=== PATIENT | female | born 1995 | race African-American/Black ===

== ENCOUNTER 2018-07-17 11:02 | Emergency (ER) | payer MEDICAID ==
[~2018-07-17] VITALS: Ht 157.5 cm; Wt 103.0 kg
[~2018-07-17 11:02] MED LIST: ALBU18HF2 IH; BECL8.7A6 INH; HYDR-519 PO
[2018-07-17] MEDS ORDERED: HYDROCODONE/ACETAMINOPHEN 5/325MG TABLET PO STA (11:37)
[2018-07-17 12:11] LABS: BASOPHILS % 0.7 % (0.0-2.0); EOSINOPHILS % 3.1 % (0.0-5.0); HEMATOCRIT. 38.1 % (36.0-48.0); HEMOGLOBIN. 12.5 g/dL (12.0-16.0); LYMPHOCYTES % 27.9 % (20.0-50.0); MEAN CORPUSCULAR HEMOGLOBIN 28.1 pg (28.0-32.0); MEAN CORPUSCULAR VOLUME 85.4 fL (81.0-99.0); MEAN PLATELET VOLUME 6.8 fl (7.4-10.4); MONOCYTES % 6.6 % (2.0-8.0); NEUTROPHILS % 61.7 % (40.0-76.0); PLATELET 621 x1000/uL (130-400); RED BLOOD CELL COUNT 4.46 mill/uL (4.2-5.4); RED CELL DISTRIBUTION WIDTH 14.2 % (11.6-14.6)
[2018-07-17 12:21] LABS: CHLORIDE 105 mEq/L (98-107)
[2018-07-17] MEDS ORDERED: ACETAMINOPHEN 500MG TABLET PO ONE (12:30)
[2018-07-17] MEDS ORDERED: ONDANSETRON HCL 4MG/2ML INJ IV ONE (13:15)
[2018-07-17 13:53] LABS: CLARITY URINE CLOUDY (CLEAR); COLOR URINE YELLOW (YELLOW); KETONES URINE NEGATIVE (NEGATIVE); LEUKOCYTE ESTERASE URINE NEGATIVE (NEGATIVE); NITRITE URINE NEGATIVE (NEGATIVE); OCCULT BLOOD URINE NEGATIVE (NEGATIVE); PH URINE >=9.0 (4.5-8.0); PROTEIN URINE NEGATIVE (NEGATIVE); SPECIFIC GRAVITY URINE 1.013 (1.005-1.030); UROBILINOGEN URINE 0.2 E.U./dL (0.2-1.0)
[2018-07-17] MEDS ORDERED: MORPHINE SULFATE 2 MG/ML CPJ (NOT FOR IM USE) IV ONE (14:00)
[2018-07-17 16:20] VITALS: BP 117/65
== END 2018-07-17 16:20 | disposition home or self-care (01) ==
LOC: ER 11:59
DX: R10.2 Pelvic and perineal pain (principal); D25.9 Leiomyoma of uterus, unspecified; J45.909 Unspecified asthma, uncomplicated; Z79.899 Other long term (current) drug therapy
CPT/HCPCS: 36415; 74176; 76856; 80053; 81003; 81025; 85025; 96374; 96375; 99285; J2270; J2405

== ENCOUNTER → 2020-04-23 | Outpatient (CLI) | payer MEDICAID ==
[~2020-04-23] MED LIST changes: +IBUP-2030 PO; +TRAM50TA3 PO
== END | disposition home or self-care (01) ==
LOC: LAB 07:34
PROVIDERS: ATTEND Obstetrics & Gynecology
DX: Z01.818 Encounter for other preprocedural examination (principal); Z11.59 Encounter for screening for other viral diseases
CPT/HCPCS: C9803; U0003

== ENCOUNTER 2020-04-26 11:09 | Day surgery (SDC) | payer MEDICAID ==
[~2020-04-26] VITALS: Ht 157.5 cm; Wt 102.1 kg
[2020-04-26 12:04] LABS: CLARITY URINE CLEAR (CLEAR); COLOR URINE YELLOW (YELLOW); KETONES URINE NEGATIVE (NEGATIVE); LEUKOCYTE ESTERASE URINE NEGATIVE (NEGATIVE); NITRITE URINE NEGATIVE (NEGATIVE); OCCULT BLOOD URINE NEGATIVE (NEGATIVE); PROTEIN URINE NEGATIVE (NEGATIVE); SPECIFIC GRAVITY URINE 1.011 (1.005-1.030); UROBILINOGEN URINE 0.2 E.U./dL (0.2-1.0)
[2020-04-26 12:05] LABS: BASOPHILS % 0.8 % (0.0-2.0); HEMATOCRIT. 37.2 % (36.0-48.0); HEMOGLOBIN. 12.3 g/dL (12.0-16.0); LYMPHOCYTES % 34.3 % (20.0-50.0); MEAN CORPUSCULAR HEMOGLOBIN 27.4 pg (28.0-32.0); MEAN CORPUSCULAR VOLUME 82.8 fL (81.0-99.0); MEAN PLATELET VOLUME 6.8 fl (7.4-10.4); MONOCYTES % 4.1 % (2.0-8.0); NEUTROPHILS % 56.8 % (40.0-76.0); PLATELET 584 x1000/uL (130-400); RED CELL DISTRIBUTION WIDTH 14.6 % (11.6-14.6)
[2020-04-26 12:10] LABS: UCG SCREEN NEGATIVE
[2020-04-26 12:15] LABS: PARTIAL THROMBOPLASTIN TIME 29.3 sec (23.4-31.0); PROTHROMBIN TIME 10.8 sec (9.6-11.0)
[2020-04-26 12:19] LABS: CHLORIDE 106 mEq/L (98-107)
[2020-04-26] MEDS ORDERED: LACTATED RINGERS 1,000 ML IV SCH (12:45)
[2020-04-26] MEDS ORDERED: BUPIVACAINE HCL/PF 0.5% (5MG/ML) 10ML ONE (13:52)
[2020-04-26] MEDS ORDERED: VASOPRESSIN 20 UNIT/ML 1ML ONE (13:53)
[2020-04-26] MEDS ORDERED: FENTANYL CITRATE/PF 50MCG/ML 2ML VIAL ONE ×2 (17:19→19:46)
[2020-04-26] MEDS ORDERED: LIDOCAINE HCL 2% JELLY 5ML ONE (17:20)
[2020-04-26] MEDS ORDERED: LIDOCAINE HCL/PF 1% 10 MG/ML 5ML VIAL ONE (17:20)
[2020-04-26] MEDS ORDERED: PROPOFOL 200MG/20ML VIAL IV ONE (17:20)
[2020-04-26] MEDS ORDERED: MIDAZOLAM HCL 2 MG/2 ML VIAL ONE (17:20)
[2020-04-26] MEDS ORDERED: ROCURONIUM BROMIDE 10MG/ML VIAL 5ML IV ONE ×2 (17:21→18:26)
[2020-04-26] MEDS ORDERED: SUCCINYLCHOLINE CHLORIDE 200MG/10ML IV ONE (17:21)
[2020-04-26] MEDS ORDERED: TERBUTALINE SULFATE 1MG/ML VIAL ONE (17:30)
[2020-04-26] MEDS ORDERED: ESMOLOL HCL 10MG/ML 10ML VIAL IV ONE (17:44)
[2020-04-26] MEDS ORDERED: SKIN ADHESIVE 0.7 GM EA TOP ONE (19:06)
[2020-04-26] MEDS ORDERED: ONDANSETRON HCL 4MG/2ML INJ ONE (19:09)
[2020-04-26] MEDS ORDERED: GLYCOPYRROLATE 0.2 MG/ML 2ML VIAL ONE (19:23)
[2020-04-26] MEDS ORDERED: NEOSTIGMINE METHYLSULFATE 1MG/ML 10 ML VIAL ONE (19:23)
[2020-04-26] MEDS: HYDROMORPHONE HCL/PF 2MG/ML CPJ IV PRN ×2 (20:16→20:22)
[2020-04-26] MEDS ORDERED: HYDROCODONE/ACETAMINOPHEN 10/325MG TABLET PO NR (21:04)
[2020-04-26] MEDS ORDERED: KETOROLAC 30MG/ML VIAL IV NR (21:30)
[2020-04-26 21:35] VITALS: BP 128/88
== END 2020-04-26 22:30 | disposition home or self-care (01) ==
LOC: OR 11:09
PROVIDERS: ATTEND Obstetrics & Gynecology
DX: D25.9 Leiomyoma of uterus, unspecified (principal); N92.0 Excessive and frequent menstruation with regular cycle; R10.2 Pelvic and perineal pain; E66.9 Obesity, unspecified; J45.909 Unspecified asthma, uncomplicated; Z79.899 Other long term (current) drug therapy; Z98.890 Other specified postprocedural states; Z68.41 Body mass index [BMI] 40.0-44.9, adult
CPT/HCPCS: 36415; 58545; 80048; 81003; 81025; 85025; 85610; 85730; 86850; 86900; 86901; 88305; J0330; J1170; J1885; J2250; J2405; J2704; J2710; J3010; J3105; J3490; S2900